=== PATIENT | male | born 1990 | race Asian ===

== ENCOUNTER 2019-08-31 18:37 | Emergency (ER) | payer MEDICAID ==
[2019-08-31 18:37] VITALS: BP_SYST 141
[2019-08-31] MEDS ORDERED: LIDOCAINE 1% 10 MG/ML, 20 ML MDV INJ ONE (20:00)
[2019-08-31] MEDS ORDERED: BACITRACIN ZINC 15 GM TOPICAL OINTMENT TP ONE (20:30)
[2019-08-31] MEDS ORDERED: BACITRACIN 1 GM OINT TP ONE (20:44)
[2019-08-31 20:59] VITALS: BP_SYST 141
== END 2019-08-31 20:55 | disposition home or self-care (01) ==
LOC: SED 18:37
DX: S01.81XA Laceration without foreign body of other part of head, initial encounter (principal); W22.8XXA Striking against or struck by other objects, initial encounter; Y93.89 Activity, other specified; Y92.098 Other place in other non-institutional residence as the place of occurrence of the external cause; Y99.8 Other external cause status
CPT/HCPCS: 12011; 99283; J2001